=== PATIENT | male | born 1970 | race Caucasian/White ===

== ENCOUNTER 2022-10-22 12:01 | Emergency (ER) | payer SELFPAY ==
[2022-10-22 12:29] LABS: Hematocrit 40.2 % (39.6-49.0); Lymphocytes % 40.7 % (15.3-44.8); MCV 89.9 fL (80-100); MPV 7.3 fL (7.6-11.3); RBC Red Blood Cell Count 4.46 M/uL (4.33-5.43)
[2022-10-22] MEDS ORDERED: KETOROLAC 30 MG/ML INJ ONE (12:31)
[2022-10-22 12:49] LABS: Troponin High Sensitivity 4.2 pg/mL (<58.9)
--- NOTE | 2022-10-22 12:56 | RAD REPORT ---
EXAM DESCRIPTION: RAD - Chest Single View - 10/22/2022 12:46 pm CLINICAL HISTORY: CHEST PAIN COMPARISON: No comparisons FINDINGS: Lines: None. Lungs: No evidence of edema or pneumonia. Pleural: No significant pleural effusions or pneumothorax. Cardiac: The heart size is within normal limits. Mediastinum: Within normal limits. Bones: No acute fractures. Other: None IMPRESSION: No acute cardiopulmonary disease.
--- NOTE | 2022-10-22 13:40 | EDPHYS ---
Physician Documentation [facility] Name: Hardik Sherman Age: 52 yrs Sex: Male : 1970 Arrival Date: 10/22/2022 Time: 12:01 Bed 2 Private MD: ED Physician Festus Amin HPI: 10/22 12:51 This 52 yrs old Male presents to ER via Ambulatory with complaints of Chest bs3 Pain. 12:51 Patient has no significant past medical history and he reports 3 days of chest pain he bs3 denies any associated numbness tingling weakness was in his extremities he denies any exertional symptoms he notes that this morning the pain was completely gone but when he sat up in bed the pain came back he thinks the pain is worse with palpating the back of his chest he notes that he has had the pain for 3 days is not ripping or tearing he does not have associated numbness tingling or weakness of his extremities. Historical: - Allergies: 12:28 No Known Allergies; ld1 - PMHx: 12:15 None; ld1 - PSHx: 12:15 None; ld1 - Immunization history:: Adult Immunizations up to date. - Social history:: Smoking status: Patient denies any tobacco usage or history of. Patient/guardian denies using alcohol. ROS: 12:51 Constitutional: Negative for fever, chills Eyes: Negative for injury, pain, redness, bs3 and discharge, ENT: Negative for injury, pain, and discharge. 12:51 All other systems are negative. Exam: 12:51 Constitutional: This is a well developed, well nourished patient who is awake, alert, bs3 and in no acute distress. Head/Face: Normocephalic, atraumatic. Eyes: Pupils equal round and reactive to light, extra-ocular motions intact. Lids and lashes normal. ENT: mmm, no posterior phyarngeal erythema Neck: Trachea midline, no thyromegaly, no neck stiffness Chest/axilla: Normal chest wall appearance and motion. He has tenderness to palpation of his left posterior chest(upper back). No lesions are appreciated. Cardiovascular: Regular rate and rhythm with a normal S1 and S2. symmetric pulses in upper extremities Respiratory: Lungs have equal breath sounds bilaterally, clear to auscultation, no respiratory distress Abdomen/GI: Soft, non-tender, no rebound or guarding Skin: Warm, dry with normal turgor. Normal color with no rashes, no lesions, and no evidence of cellulitis. MS/ Extremity: Pulses equal, no cyanosis. Neurovascular intact. Full, normal range of motion. Neuro: Awake and alert, GCS 15, oriented to person, place, time, and situation. Cranial nerves II-XII grossly intact. Motor strength 5/5 in all extremities. Sensory grossly intact. Psych: Awake, alert, with orientation to person, place and time. Behavior, mood, and affect are within normal limits. 12:51 Normal sinus rhythm at [address] elevation or depressions QTc 454 Vital Signs: 12:15 BP 142 / 88; Pulse 84; Resp 17; Pulse Ox 96% on R/A; ld1 12:28 BP 133 / 78; Pulse 77; Resp 12; Pulse Ox 96% on R/A; ld1 12:28 Pain 7/10; ld1 12:28 Weight 82.55 kg; Height 5 ft. 7 in. ; ld1 12:28 Temp 97.9(TE); ld1 13:02 BP 120 / 76; Pulse 69; Resp 12; Pulse Ox 96% on R/A; ld1 12:28 Body Mass Index 28.50 (82.55 kg, 170.18 cm) ld1 12:28 Pain Scale: Adult ld1 MDM: 12:10 Patient medically screened. bs3 12:51 HEART Score: History: Slightly Suspicious (0), ECG: Normal (0), Age: > 45 and < 65 bs3 years (1), Risk Factors: No Risk Factors Known (0), Troponin: < or = 1 x Normal Limit (0), Total Score = 1. Data reviewed: vital signs, nurses notes. ED course: Patient with 3 days of chest pain appears musculoskeletal based on the history and physical he does lift things at work. 13:24 ED course: Troponin negative discussed with patient who did not want further workup, bs3 will dc home advised outpatietn cardio f/u within 72 hours. 13:38 Consideration of Admission/Observation Escalation of care including bs3 admission/observation considered. Test considered but Not performed: CT: CTA considered but symptoms not consistent with dissection heart rate is normal his blood pressure are normal he is very well-appearing he has good symmetric pulses and no risk factors for dissection. 10/22 12:17 Order name: CBC with Diff; Complete Time: 13:04 bs3 10/22 12:17 Order name: BMP; Complete Time: 13:04 bs3 10/22 12:17 Order name: Troponin High Sensitivity; Complete Time: 13:04 bs3 10/22 12:17 Order name: XRAY Chest (1 view); Complete Time: 13:04 bs3 Administered Medications: 12:27 Drug: Ketorolac IVP 15 mg Route: IVP; Site: left antecubital; ld1 Disposition Summary: 10/22/22 13:39 Discharge Ordered Location: Home bs3 Problem: new bs3 Symptoms: have improved bs3 Condition: Stable bs3 Diagnosis - Chest pain, unspecified bs3 Followup: bs3 - With: Ray Pedroza MD - When: 1 - 2 days - Reason: Recheck today's complaints Discharge Instructions: - Discharge Summary Sheet bs3 - Nonspecific Chest Pain, Adult bs3 Forms: - Medication Reconciliation Form bs3 - Thank You Letter bs3 - Antibiotic Education bs3 - Prescription Opioid Use bs3 Signatures: Dispatcher [employer] EDBriana Zhao RN RN ld1 Festus Amin MD MD bs3 Corrections: (The following items were deleted from the chart) 12:15 12:15 PMHx: Unable to Obtain; ld1 ld1
--- NOTE | 2022-10-22 13:40 | ER ---
Nurse's Notes [facility] Name: Hardik Sherman Age: 52 yrs Sex: Male : 1970 Arrival Date: 10/22/2022 Time: 12:01 Bed 2 Private MD: Diagnosis: Chest pain, unspecified Presentation: 10/22 12:15 Chief complaint: Patient states: CP for 3 days. Ebola Screen: Patient denies travel to [facility] an Ebola-affected area in the 21 days before illness onset. Initial Sepsis Screen: Does the patient meet any 2 criteria? No. Patient's initial sepsis screen is negative. Does the patient have a suspected source of infection? No. Patient's initial sepsis screen is negative. Risk Assessment: Do you want to hurt yourself or someone else? Patient reports no desire to harm self or others. Onset of symptoms was October 20, 2022. 12:15 Method Of Arrival: Ambulatory ld1 12:15 Acuity: NEHEMIAH 3 ld1 Historical: - Allergies: 12:28 No Known Allergies; ld1 - PMHx: 12:15 None; ld1 - PSHx: 12:15 None; ld1 - Immunization history:: Adult Immunizations up to date. - Social history:: Smoking status: Patient denies any tobacco usage or history of. Patient/guardian denies using alcohol. Screenin:28 [facility] ED Fall Risk Assessment (Adult) History of falling in the last 3 months, ld1 including since admission No falls in past 3 months (0 pts). Abuse screen: Denies threats or abuse. Denies injuries from another. Nutritional screening: No deficits noted. Tuberculosis screening: No symptoms or risk factors identified. Assessment: 12:27 General: Appears in no apparent distress. comfortable, Behavior is calm, cooperative, ld1 appropriate for age. Pain: Complains of pain in chest Pain radiates to left scapular area Pain currently is 7 out of 10 on a pain scale. Quality of pain is described as throbbing, Pain began 2-3 days ago. Neuro: Level of Consciousness is awake, alert, obeys commands, Oriented to person, place, time, situation. Cardiovascular: Capillary refill < 3 seconds Patient's skin is warm and dry. Rhythm is sinus rhythm. Respiratory: Airway is patent Respiratory effort is even, unlabored. GI: Abdomen is flat, non-distended. : No signs and/or symptoms were reported regarding the genitourinary system. EENT: No signs and/or symptoms were reported regarding the EENT system. Derm: No signs and/or symptoms reported regarding the dermatologic system. Musculoskeletal: No signs and/or symptoms reported regarding the musculoskeletal system. 13:02 Reassessment: Patient appears in no apparent distress at this time. No changes from ld1 previously documented assessment. Patient and/or family updated on plan of care and expected duration. Pain level reassessed. Patient is alert, oriented x 3, equal unlabored respirations, skin warm/dry/pink. Vital Signs: 12:15 BP 142 / 88; Pulse 84; Resp 17; Pulse Ox 96% on R/A; ld1 12:28 BP 133 / 78; Pulse 77; Resp 12; Pulse Ox 96% on R/A; ld1 12:28 Pain 7/10; ld1 12:28 Weight 82.55 kg; Height 5 ft. 7 in. ; ld1 12:28 Temp 97.9(TE); ld1 13:02 BP 120 / 76; Pulse 69; Resp 12; Pulse Ox 96% on R/A; ld1 12:28 Body Mass Index 28.50 (82.55 kg, 170.18 cm) ld1 12:28 Pain Scale: Adult ld1 ED Course: 12:03 Patient arrived in ED. rg4 12:10 Festus Amin MD is Attending Physician. bs3 12:15 Arm band placed on Patient placed in an exam room, on a stretcher. ld1 12:16 Triage completed. ld1 12:23 Troponin High Sensitivity Sent. jl7 12:23 BMP Sent. jl7 12:23 CBC with Diff Sent. jl7 12:27 Briana Wade, LEEANNE is Primary Nurse. ld1 12:28 Patient has correct armband on for positive identification. Placed in gown. Bed in low ld1 position. Call light in reach. Side rails up X2. telemarketing supervisor on. Pulse ox on. NIBP on. Door closed. Noise minimized. Warm blanket given. 12:28 No provider procedures requiring assistance completed. Inserted saline lock: 20 gauge ld1 in left antecubital area, using aseptic technique. Blood collected. Patient maintains SpO2 saturation greater than 95% on room air. 12:48 XRAY Chest (1 view) In Process Unspecified. EDMS 13:39 Ray Pedroza MD is Referral Physician. bs3 14:15 IV discontinued, intact, bleeding controlled, No redness/swelling at site. Pressure kc6 dressing applied. Administered Medications: 12:27 Drug: Ketorolac IVP 15 mg Route: IVP; Site: left antecubital; ld1 Medication: 12:28 VIS not applicable for this client. ld1 Outcome: 13:39 Discharge ordered by . bs3 14:07 Patient left the ED. ld1 14:15 Discharged to home ambulatory. kc6 14:15 Condition: stable 14:15 Discharge instructions given to patient, Instructed on discharge instructions, follow up and referral plans. Demonstrated understanding of instructions, follow-up care. 14:15 Patient left the ED. kc6 Signatures: Dispatcher [employer] EDMS Benita Pemberton rg4 Paul Cavanaugh RN RN jl7 Briana Wade RN RN ld1 Michelle Camarena RN RN kc6 Festus Amin MD MD bs3 Corrections: (The following items were deleted from the chart) 12:15 12:15 PMHx: Unable to Obtain; ld1 ld1
[2022-10-22 14:13] VITALS: O2SAT 96
[2022-10-22 14:15] VITALS: TEMP 97.9
[2022-10-22 14:29] VITALS: BP 120/76
--- NOTE | 2022-10-24 10:18 | EKG ---
Test Date: 2022-10-22 Test Time: 12:17:00 Inventory Auditor: Cristofer ST MEASUREMENT RESULTS: Intervals: Rate: 77 AK: 136 QRSD: 84 QT: 402 QTc: 454 [place]: P: 65 AK: 136 QRS: 60 T: 54 INTERPRETIVE STATEMENTS: Normal sinus rhythm Normal ECG No previous ECG available for comparison Electronically Signed On 10-24-22 10:14:07 CDT by Dangelo Payne
== END 2022-10-22 14:15 | disposition home or self-care (01) ==
LOC: ER 12:01
DX: R07.9 Chest pain, unspecified (principal)
CPT/HCPCS: 36415; 71045; 80048; 84484; 85025; 93005; 96374; 99285

== ENCOUNTER 2024-06-02 07:48 | Observation (INO) | payer OTHER, SELFPAY ==
--- OUTSIDE RECORDS SUMMARY | 2024-06-02 07:51 | XMS REPORT | Continuity of Care Document ---
Author Name Unknown Address [address] [place] [address] [facility] Address [address] [place] [address] Care Team Providers Care [employer] Tower Controller Name Role Phone HARSHA ESTRADA Attending Clinician Unavailable KARIN PRO Attending Clinician Unavailable [id number] Attending Clinician Unavailable LESLIE BAKER Attending Clinician Unavailable LATASHA Attending Clinician Unavailable BIANCA GARCIA Attending Clinician Unavailab le [id number] Attending Clinician Unavailable JUDAH ROONEY Attending Clinician Unavailable NICOLE CARPIO Attending Clinician Unavailable LAB90 Attending Clinician Unavailable Payers Payer Name Policy Type Policy Number Effective Date Expirati on Date Source [employer] MP [employer] 5 O OPERATING ROOM COORDINATOR 94 ON 9 [id number] 2023 00:00:00 Social History Social Habit Start Date Stop Date Quantity Comments Source Sexual orientation Isabella Monet - External History of Social function 2023-12-05 00:00:00 2023-12-05 00:00:00 Nicole Monet - External Tobacco use and exposure 2023-04-18 00:00:00 2023-04-18 00:00:00 Smokeless tobacco non-user Nicole Monet - External Sex [birth year] at 1970 00:00:00 1970 00:00:00 Nicole Monet - External Smoking Status Start Date Stop Date Source Never smoked tobacco Nicole Monet - External Medications Ordered Medication Name Filled Medication Name Start Date Stop Date Current Medication? Ordering Clinician Indication Dosage Frequency Signature (SIG) Comments Components Source Tizanidine HCl 2 MG oral Tablet 11-16 00:00: 00 Yes [id number] 2mg Take 1 tablet (2 mg total) by mouth at bedtime as needed for muscle spasms. Nicole jaramillo Doxycycline Hyclate 100 MG oral Tablet 11-15 00:00: 00 Yes [id number] 100mg Q.5D Take 1 tablet (100 mg total) by mouth 2 times daily. Nicole jaramillo Tizanidine HCl 2 MG oral Tablet 10-18 00:00: 00 Yes [id number] 2mg Take 1 tablet (2 mg total) by mouth at bedtime as needed for muscle spasms. Nicole jaramillo Meloxicam 15 MG oral Tablet 10-16 00:00: 00 Yes 15mg QD Take 1 tablet (15 mg total) by mouth daily. Nicole jaramillo Immunizations Ordered Immunization Name Filled Immunization Name Date Status Comments Source Covid-19 Vaccine Moderna (Spikevax), Mrna-lnp, Bebo Protein, Pf Unknown Completed Nicole Monet - External Covid-19 Vaccine Moderna (Spikevax), Mrna-lnp, Bebo Protein, Pf Unknown Completed Nicole Monet - External Covid-19 Vaccine Moderna (Spikevax), Mrna-lnp, Bebo Protein, Pf Unknown Completed Nicole Monet - External Vital Signs Vital Name Observation Time Observation Value Comments S [place] Systolic blood pressure 2023-12-05 18:00:00 124 mm[Hg] Nicole Valentine ld - External Diastolic blood pressure 2023-12-05 18:00:00 62 mm[Hg] Nicole bryson - External Heart rate 2023-12-05 18:00:00 78 /min Nery Monet - External Body temperature 2023-12-05 18:00:00 36.72 Mayra Nicole Monet - External Respiratory rate 2023-12-05 18:00:00 16 /min Nicole Monet - External Body height 2023-12-05 18:00:00 177.8 cm Stephanie Monet - External Body weight 2023-12-05 18:00:00 80.65 kg Stephanie ey Seybold - External BMI 2023-12-05 18:00:00 25.51 kg/m2 Stephanie ey Seybold - External Systolic blood pressure 2023-10-19 19:34:00 112 mm[Hg] Nicole Seybo ld - External Diastolic blood pressure 2023-10-19 19:34:00 68 mm[Hg] Nicole Seybo ld - External Heart rate 2023-10-19 19:34:00 76 /min Kelse y Seybold - External Body temperature 2023-10-19 19:34:00 36.67 Mayra Nicole Seybold - External Respiratory rate 2023-10-19 19:34:00 17 /min Nicole Seybold - External Body height 2023-10-19 19:34:00 177.8 cm Stephanie ey Seybold - External Body weight 2023-10-19 19:34:00 79.107 kg Stephanie ey Seybold - External BMI 2023-10-19 19:34:00 25.02 kg/m2 Stephanie ey Seybold - External Oxygen saturation in Arterial blood by Pulse oximetry 2023-10-19 19:34:00 97 /min Nicole Seybo ld - External Systolic blood pressure 2023-04-18 20:31:00 126 mm[Hg] Nicole Seybo ld - External Diastolic blood pressure 2023-04-18 20:31:00 68 mm[Hg] Nicole Seybo ld - External Heart rate 2023-04-18 20:31:00 68 /min Kelse y Seybold - External Body temperature 2023-04-18 20:31:00 36.61 Mayra Nicole Seybold - External Respiratory rate 2023-04-18 20:31:00 18 /min Nicole Seybold - External Body height 2023-04-18 20:31:00 180.3 cm Stephanie ey Seybold - External Body weight 2023-04-18 20:31:00 79.946 kg Stephanie ey Seybold - External BMI 2023-04-18 20:31:00 24.58 kg/m2 Stephanie ey Seybold - External Oxygen saturation in Arterial blood by Pulse oximetry 2023-04-18 20:31:00 97 /min Nicole Valentine ld - External Encounters Start Date/Time End Date/Time Encounter Type Admission Type Attending [facility] Care Department Encounter ID Source 2024-02-13 00:00:00 2024-02-13 00:00:00 Outpatient HARSHA ESTRADA NICOLE ROD [id number] [facility] 2024-02-13 00:00:00 2024-02-13 00:00:00 Outpatient SEAN HARSHA ROD [id number] [facility] 2024-01-02 00:00:00 2024-01-02 00:00:00 Outpatient SEAN HARSHA ROD [id number] [facility] 2023-12-29 00:00:00 2023-12-29 00:00:00 Outpatient SEAN, HARSHA NICOLE ROD [id number] [facility] 2023-12-19 16:00:00 2023-12-19 16:00:00 Outpatient NICOLE ROD [id number] [facility] 2023-12-19 00:00:00 2023-12-19 00:00:00 Outpatient [id number] [facility] 2023-12-14 00:00:00 2023-12-14 00:00:00 Outpatient INOCENCIAKARIN NICOLE ROD [id number] [facility] 2023-12-12 00:00:00 2023-12-12 00:00:00 Outpatient SEAN, HARSHA ROD [id number] [facility] 2023-12-05 13:50:00 2023-12-05 13:50:00 Outpatient LAB45 NICOLE ROD [id number] [facility] 2023-12-05 11:00:00 2023-12-05 11:00:00 Outpatient SEAN HARSHA NICOLE ROD [id number] [facility] 2023-11-16 00:00:00 2023-11-16 00:00:00 Outpatient LESLIE BAKER [id number] [facility] 2023-11-16 00:00:00 2023-11-16 00:00:00 Outpatient LESLIE [facility]AKER [facility] [id number] [facility] 2023-11-09 00:00:00 2023-11-09 00:00:00 Out[facility] LATASHA [facility] [id number] [facility] 2023-11-06 00:00:00 2023-11-06 00:00:00 Outpatient BIANCA GARCIA [facility] [id number] [facility] 2023-11-03 16:15:00 2023-11-03 16:15:00 [facility] [id number] [facility] 2023-10-20 00:00:00 2023-10-20 00:00:00 Outpatient LESLIE BAKER NICOLE NICOLE [id number] [facility] 2023-10-19 14:30:00 2023-10-19 14:30:00 Outpatient LESLIE BAKER [facility] [id number] [facility] 2023-09-21 16:15:00 2023-09-21 16:15:00 Out[facility] [id number] [facility] 2023-09-21 00:00:00 2023-09-21 00:00:00 Outpatient BIANCA GARCIA [facility] [id number] [facility] 2023-08-21 16:15:00 2023-08-21 16:15:00 Out[facility] [id number] [facility] 2023-07-27 08:00:00 2023-07-27 08:00:00 Out[facility] [id number] [facility] 2023-07-07 00:00:00 2023-07-07 00:00:00 Outpatient BIANCA GARCIA [facility]LE [facility] [id number] [facility] 2023-06-30 13:15:00 2023-06-30 13:15:00 Outpatient TREVignesh7 NICOLE ROD [id number] [facility] 2023-06-30 11:00:00 2023-06-30 11:00:00 Outpatient [facility]LE R[facility] [id number] [facility] 2023-06-30 10:00:00 2023-06-30 10:00:00 Outpatient [facility]LE ROD [id number] [facility] 2023-05-26 13:15:00 2023-05-26 13:15:00 Outpatient TRED47 NICOLE ROD [id number] [facility] 2023-05-26 11:00:00 2023-05-26 11:00:00 Out[facility] [id number] [facility] 2023-05-24 15:30:00 2023-05-24 15:30:00 Outpatient STARARLYNA NICOLE ROD [id number] [facility] 2023-05-19 00:00:00 2023-05-19 00:00:00 Outpatient BIANCA GARCIA [id number] [facility] 2023-05-09 14:10:00 2023-05-09 14:10:00 Outpatient JUDAH ROONEY [id number] [facility] 2023-05-04 11:30:00 2023-05-04 11:30:00 Outpatient NICOLE CARPIO [facility] [id number] [facility]23-05-02 00:00:00 2023-05-02 00:00:00 Out[facility] [id number] [facility] 2023-05-02 00:00:00 2023-05-02 00:00:00 Out[facility] [id number] [facility] 2023-05-01 00:00:00 2023-05-01 00:00:00 Outpatient BIANCA GARCIA [id number] [facility] 2023-04-26 08:40:00 2023-04-26 08:40:00 Outpatient LABIsmael ROD [id number] [facility] 2023-04-21 09:30:00 2023-04-21 09:30:00 Outpatient BIANCA GARCIA [id number] [facility] 2023-04-20 00:00:00 2023-04-20 00:00:00 Outpatient BIANCA GARCIA [id number] [facility] 2023-04-20 00:00:00 2023-04-20 00:00:00 Outpatient STARSILVERIOBIANCAMaynor FRANCESEY [id number] Nicole Monet 2023-04-19 08:05:00 2023-04-19 08:05:00 Outpatient LAB90 NICOLE ROD [id number] Nicole Monet 2023-04-18 14:30:00 2023-04-18 14:30:00 Outpatient STARARLYNA NICOLE NICOLE [id number] Nicole Mon[facility] History and Physical Notes Date/Time Note Provider Source 2023-12-05 13:12:01 GASTROENTEROLOGY Video visit Consultation Referring Physician: Bianca Garcia FNP* Reason for referral: Chronic hepatitis C HPI: Patient is a very pleasant 53 year old male complaints of chronic hepatitis C diagnosed about few years back. He never had treatment in the past. also had hepatitis C who received treatment. He denies any use of alcohol. No history of any problems with the liver in the past. 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 ? ROS: Constitutional: no wt loss, no fever, no chills, no fatigue Gastrointestinal: See HPI ? Past Medical History: Diagnosis Date Umbilical hernia Past Surgical History: Procedure Laterality Date REPAIR ING HERNIA, SLIDING Social History Tobacco Use Smoking status: Never Smokeless tobacco: Never No Known Allergies Current Outpatient Medications on File Prior to Visit Medication Sig Dispense Refill Doxycycline Hyclate 100 MG oral Tablet Take 1 tablet (100 mg total) by mouth 2 times daily. (Patient not taking: Reported on 12/05/2023.) 14 tablet 0 Meloxicam 15 MG oral Tablet Take 1 tablet (15 mg total) by mouth daily. (Patient not taking: Reported on 12/05/2023.) Tizanidine HCl 2 MG oral Tablet Take 1 tablet (2 mg total) by mouth at bedtime as needed for muscle spasms. (Patient not taking: Reported on 12/05/2023.) 90 tablet 0 No current facility-administered medications on file prior to visit. BP 124/62 | Pulse 78 | Temp 98.1 ?F (36.7 ?C) (Oral) | Resp 16 | Ht 5' 10" (1.778 m) | Wt 177 lb 12.8 oz (80.6 kg) | BMI 25.51 kg/m? Reviewed labs and imaging ? Assessment and plan: 53 year old male with 1) chronic hepatitis C -the viral load is 352,000 Iu/ ml, liver enzymes shows elevation of AST and ALT but liver synthetic function is normal. Ultrasound shows nodular liver. However CBC is normal and liver enzymes do not show pattern suggestive of cirrhosis. Recommendations -Repeat LFT, hepatitis C genotype -Hepatitis B and HIV test are negative -FibroSure -Depending on the lab results will prescribe treatment for hepatitis C -Although the ultrasound shows nodular liver labs do not suggest presence of cirrhosis. There is no risk factor for cirrhosis other than hepatitis C. -Plan is to see the results of FibroSure, repeat labs and Doppler after finishing treatment of hepatitis C. 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 Harsha Estrada MD, MS Gastroenterology [facility]
[2024-06-02] MEDS ORDERED: ONDANSETRON 4 MG/2 ML VIAL ONE (07:56)
[2024-06-02] MEDS ORDERED: NA CHLORIDE 0.9% 1,000 ML ONE (07:57)
[2024-06-02] MEDS ORDERED: FAMOTIDINE 20 MG/2 ML VIAL IV ONE (07:57)
[2024-06-02] MEDS ORDERED: MORPHINE 4 MG/ML SYR ONE ×2 (07:57→08:22)
[2024-06-02 08:06] LABS: Absolute Basophils 0.1 K/uL (0-0.5); Absolute Eosinophils 0.1 K/uL (0-0.5); Absolute Lymphocytes (CBC) 3.4 K/uL (0.7-4.9); Absolute Monocytes 0.5 K/uL (0.1-1.3); Absolute Neutrophil 11.4 K/uL (1.8-8.0); Basophils % 0.9 % (0-1.3); Eosinophils % 0.5 % (0-4.4); Hematocrit 44.8 % (39.6-49.0); Hemoglobin 15.3 g/dL (13.6-17.9); Lymphocytes % 21.6 % (15.3-44.8); MCH 30.5 pg (27.0-35.0); MCHC 34.1 g/dL (32.0-36.0); MCV 89.4 fL (80-100); MPV 7.3 fL (7.6-11.3); Monocytes % 3.4 % (3.3-12.3); Neutrophils % 73.6 % (41.7-73.7); Platelets 255 thou/uL (152-406); RBC Red Blood Cell Count 5.01 M/uL (4.33-5.43); Red Cell Distribution Width 13.2 % (12.1-15.2)
[2024-06-02 08:22] LABS: Albumin 4.1 g/dL (3.4-5.0); Anion Gap 9.3 mEq/L (5.0-15.0); Bilirubin Total 0.5 mg/dL (0.2-1.0); Globulin 4.2 g/dL (2.3-3.5); Potassium 3.3 mEq/L (3.5-5.1); Protein, Total 8.3 g/dL (6.4-8.2); Troponin High Sensitivity 3.9 pg/mL (<58.9)
[2024-06-02] MEDS ORDERED: PROMETHAZINE INJ 25 MG/ML AMP ONE (08:59)
--- NOTE | 2024-06-02 09:18 | RAD REPORT ---
EXAMINATION: US Abdomen Exam Limited CLINICAL HISTORY: [facility] MAIN Y Abd pain;Nausea / vomiting Bed Name: 5 COMPARISON: None. TECHNIQUE: Limited upper abdominal grayscale and color flow sonographic images. FINDINGS: Gallbladder: Normal. Bile ducts: No intrahepatic or extrahepatic biliary dilatation. Common bile duct measures 4 mm. Liver: Visualized portions of the liver demonstrate normal echogenicity with no suspicious findings. Fluid: No ascites. IMPRESSION: No abnormalities on right upper quadrant ultrasound.
--- NOTE | 2024-06-02 09:28 | RAD REPORT ---
EXAMINATION: CT Abdomen Pelvis W Contrast CLINICAL INDICATION: Male, 53 years old. ABD PAIN TECHNIQUE: CT abdomen and pelvis was performed, after the administration of IV contrast, as per [facility]. Axial, sagittal and coronal reconstructions were obtained. One or more of the following dose reduction techniques were used: Automated exposure control, adjustment of the mA and k V according to patient size, and iterative reconstruction. Unless otherwise specified, incidental findings do not require dedicated imaging follow-up. COMPARISON: Upper abdomen ultrasound of the same day FINDINGS: LOWER CHEST: The visualized lung bases are clear. LIVER: Normal in size. Nodular capsular contour the liver particularly inferiorly. No focal lesion. BILIARY SYSTEM: No suspicious abnormalities, although gallbladder is suboptimally distended limiting evaluation. SPLEEN: Normal size. No focal lesion. PANCREAS: No mass, ductal dilation, or mkiayla-pancreatic fluid. ADRENALS: Normal; no mass. KIDNEYS: Normal size and contour. No hydronephrosis. URINARY BLADDER: Unremarkable. GASTROINTESTINAL TRACT: Varicosities along the fundus of the stomach, could represent portosystemic s hunting. Segmental fluid opacification of mildly distended small bowel throughout the abdomen, more so along the jejunum, without significant distention throughout most of the ileum. Gradual transition to nondistended terminal ileum. No evidence of free air, significant intra-abdominal free fluid, or abscess. APPENDIX: Appendix not visualized, but no inflammatory changes in region of appendix. LYMPH NODES: No lymphadenopathy. MUSCULOSKELETAL: No acute or suspicious osseous abnormality. Transitional anatomy at L5. ADDITIONAL FINDINGS: Postsurgical sequelae of left inguinal hernia repair. IMPRESSION: Segmental fluid opacification throughout the small bowel, with mild distention most notably along the jejunum. No focal transition. Findings suggest mild ileus. Nodular contour of the liver particularly inferiorly. Varicosities along the fundus of the stomach. F indings may relate to ongoing liver fibrosis or cirrhosis with portal hypertension. Other incidental findings as above.
--- NOTE | 2024-06-02 09:34 | ER ---
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 Coronavirus screen: Client denies travel out of the [place] in the last 14 days. nausea, vomiting. Client presents with at least one sign or symptom that may indicate coronavirus-19. Standard/surgical mask placed on the client. Ebola Screen: Patient denies travel to an Ebola-affected area in the 21 days before illness onset. Initial Sepsis Screen: Does the patient meet any 2 criteria? No. Patient's initial sepsis screen is negative. Does the patient have a suspected source of infection? No. Patient's initial sepsis screen is negative. Risk Assessment: Do you want to hurt yourself or someone else? Patient reports no desire to harm self or others. Onset of symptoms was June 02, 2024. 07:51 Method Of Arrival: Ambulatory ll1 07:51 Acuity: NEHEMIAH 3 ll1 Triage Assessment: 07:56 General: Appears distressed, uncomfortable, ill, Behavior is cooperative, appropriate ll1 for age, agitated, restless. General: Reports feeling ill for fatigue for. Pain: Complains of pain in abdomen Pain currently is 10 out of 10 on a pain scale. Quality of pain is described as aching, crampy, sharp, Pain began 4 hours ago. GI: Reports upper abdominal pain, nausea, vomiting. Historical: - Allergies: 08:01 Aspirin; ll1 - Home Meds: 08:01 Methadone Oral [Active]; ll1 - PSHx: 08:01 back surgery; ll1 - Immunization history:: Adult Immunizations up to date. - Infectious Disease History:: Denies. - Family history:: not pertinent. - Social history:: Smoking status: unknown. - Hospitalizations: : No recent hospitalization is reported. Screenin:04 [facility] ED Fall Risk Assessment (Adult) History of falling in the last 3 months, ll1 including since admission No falls in past 3 months (0 pts) Confusion or Disorientation No (0 pts) Intoxicated or Sedated No (0 pts) Impaired Gait No (0 pts) Mobility Assist Device Used No (0 pt) Altered Elimination No (0 pt) Score/Fall Risk Level 0 - 2 = Low Risk Maintained a safe environment, Hourly rounding (assess needs \\T\\ fall precautionary measures) done. Abuse screen: Denies threats or abuse. Nutritional screening: No deficits noted. Tuberculosis screening: No symptoms or risk factors identified. Assessment: 07:55 Reassessment: Hit himself in the forehead after completing IV and blood work. Still ll1 very restless. 08:10 Reassessment: Explained NPO. Got up off stretcher, turned on cold water, and drank it ll1 out of faucet. Reinforced that he is to have nothing to eat or drink until results return. 08:12 Reassessment: No changes from previously documented assessment. Screaming "Call my ll1 and have her bring my medicine!" EKG done. Explained that I could contact his for him if needed. "I just need my cell phone!" Hit himself forcefully in the forehead with closed fist. 08:14 Reassessment: Patient states symptoms have not improved. Screaming loudly into cell 1 phone, "Bring my methadone now!!!" . 08:23 Reassessment: Medicated as prescribed. Hit himself in the forehead with his fist ll1 forcefully again. 08:36 Reassessment: to CT via wheelchair. ll1 08:38 Reassessment: arrived and brought his methadone to take. Dr. Summers informed. ll1 08:48 Reassessment: Patient and/or family updated on plan of care and expected duration. Pain ll1 level reassessed. patient took his home Methadone [address] Summers informed. 09:05 Reassessment: Patient and/or family updated on plan of care and expected duration. Pain ll1 level reassessed. medicated for vomiting. 09:45 Reassessment: No changes from previously documented assessment. Patient and/or family ll1 updated on plan of care and expected duration. Pain level reassessed. Patient states symptoms have improved. seems to be resting. No longer hitting himself or screaming at the staff. . 10:40 GI: Bowel sounds present X 4 quads. Abd is soft Abdomen is tender to palpation X 4 ll1 quads. Vital Signs: 07:51 Pain 10/10; ll1 07:54 BP 136 / 94; Pulse 74; Resp 24 S; Temp 97.7(O); Pulse Ox 99% on R/A; aa5 08:30 BP 125 / 89; Pulse 75; Resp 18; Pulse Ox 100% on R/A; ll1 09:18 BP 138 / 92; Pulse 74; Resp 17; ll1 09:56 BP 133 / 81; Pulse 70; Resp 16; ll1 10:39 BP 130 / 79; Pulse 78; Resp 17; Pulse Ox 100% on R/A; ll1 11:23 BP 130 / 78; Pulse 73; Resp 17; Pulse Ox 100% ; ll1 07:51 Pain Scale: Adult ll1 ED Course: 07:49 Patient arrived in ED. mr 07:50 Andrews Summers MD is Attending Physician. rn 07:50 Arm band placed on Patient placed in an exam room, on a stretcher. ll1 07:55 Provided Education on: ER procedures and process, approximate wait time for results. ll1 Screamed out "I don't care if it takes five days!" . 07:55 Initial lab(s) drawn, by me, sent to lab. Inserted saline lock: 20 gauge in right ll1 antecubital area, using aseptic technique. Blood collected. Flushed with 10 mL NS. 08:02 Triage completed. ll1 08:05 Patient has correct armband on for positive identification. Bed in low position. Client ll1 placed on continuous cardiac and pulse oximetry monitoring. NIBP monitoring applied. 08:14 US Abdomen Limited In Process Unspecified. EDMS 08:20 Tyler Pena, RN is Primary Nurse. ll1 08:24 Door closed. Lights dimmed. Warm blanket given. Verbal reassurance given. ll1 08:45 CT Abd/Pelvis - IV Contrast Only In Process Unspecified. EDMS 09:33 Jeff Jason MD is Hospitalizing Provider. rn 10:40 No provider procedures requiring assistance completed. Patient admitted, IV remains in ll1 place. Administered Medications: 08:01 Drug: Famotidine IVP 20 mg IVP once; dilute with 10 mL 0.9% NaCl; give over 2 minutes aa5 Route: IVP; Site: right antecubital; 09:17 Follow up: Response: No adverse reaction ll1 08:01 Drug: Ondansetron IVP 4 mg IVP once; over 2 minutes Route: IVP; Site: right antecubital;aa5 09:17 Follow up: Response: No adverse reaction; Nausea is decreased ll1 08:01 Drug: NS 0.9% IV 1000 ml IV at 1 bolus Per protocol; to be given as a bolus over 60 aa5 minutes Route: IV; Rate: 1 bolus; Site: right antecubital; 09:58 Follow up: Response: No adverse reaction; IV Status: Completed infusion; IV Intake: ll1 1000ml 08:02 Drug: morphine IVP or IV 4 mg IVP once over 4 mins Route: IVP; Infused Over: 4 mins; aa5 Site: right antecubital; 09:17 Follow up: Response: No adverse reaction; Pain is unchanged, physician notified; RASS: ll1 Agitated (+2) 08:23 Drug: morphine IVP or IV 4 mg IVP once over 4 mins {Note: pain 10/10 RASS 2+.} Route: ll1 IVP; Infused Over: 4 mins; Site: right antecubital; 09:18 Follow up: Response: No adverse reaction; Pain is decreased; RASS: Restless (+1) ll1 09:05 Drug: Promethazine IVP 12.5 mg IVP once Route: IVP; Site: right antecubital; iw 09:58 Follow up: Response: No adverse reaction; Nausea is decreased; RASS: Drowsy (-1) ll1 Medication: 08:05 VIS not applicable for this client. ll1 Intake: 09:58 IV: 1000ml; Total: 1000ml. ll1 Outcome: 09:34 Decision to Hospitalize by Provider. rn 10:40 Admitted to Med/surg accompanied by tech, via stretcher, room 210, with chart, Report ll1 called to faxed to 2nd floorYenny. 10:40 Condition: stable 10:40 Instructed on the need for admit, 11:23 Patient left the ED. 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 ll1 ll1 08:30 08:12 Reassessment: No changes from previously documented assessment. Screaming "Call ll1 my and have her bring my medicine!" EKG done. Explained that I could contact his for him if needed. "I just need my cell phone!" ll1
--- NOTE | 2024-06-02 09:35 | EDPHYS ---
Physician Documentation [facility] Name: Hardik Sherman Age: 53 yrs Sex: Male : 1970 Arrival Date: 06/02/2024 Time: 07:48 Bed 5 Private MD: ED Physician Andrews Summers HPI: 06/02 07:54 This 53 yrs old Male presents to ER via Unassigned with complaints of Abdominal Pain, rn Vomiting. 07:54 The patient presents to the emergency department with nausea, vomiting, abdominal pain. rn Onset: The symptoms/episode began/occurred 3 hour(s) ago. Possible causes: unknown. The symptoms are aggravated by nothing. The symptoms are alleviated by nothing. Severity of symptoms: At their worst the symptoms were moderate in the emergency department the symptoms are unchanged. The patient has not experienced similar symptoms in the past. Patient reports mid and upper abdominal pain that began a few hours ago. Associated with nausea and vomiting. No diarrhea. No blood in emesis or stool. Denies similar episodes in the past. Takes methadone but did not take today due to vomiting. No chest pain or shortness of breath.. Historical: - Allergies: 08:01 Aspirin; ll1 - Home Meds: 08:01 Methadone Oral [Active]; ll1 - PSHx: 08:01 back surgery; ll1 - Immunization history:: Adult Immunizations up to date. - Infectious Disease History:: Denies. - Family history:: not pertinent. - Social history:: Smoking status: unknown. - Hospitalizations: : No recent hospitalization is reported. 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 Continues to hit himself in the head and abdomen during episodes of pain Head/Face: Normocephalic, atraumatic. ENT: Dry mucous membranes, no stridor Cardiovascular: Regular rate and rhythm . No pulse deficits. Respiratory: Mild tachypnea, appears secondary to pain Abdomen/GI: Soft, mid periumbilical tenderness as well as epigastric tenderness. Negative [place] MS/ Extremity: Pulses equal, no cyanosis. Neuro: Awake and alert, GCS 15 09:16 ECG was reviewed by the Attending Physician. rn Vital Signs: 07:51 Pain 10/10; ll1 07:54 BP 136 / 94; Pulse 74; Resp 24 S; Temp 97.7(O); Pulse Ox 99% on R/A; aa5 08:30 BP 125 / 89; Pulse 75; Resp 18; Pulse Ox 100% on R/A; ll1 09:18 BP 138 / 92; Pulse 74; Resp 17; ll1 09:56 BP 133 / 81; Pulse 70; Resp 16; ll1 10:39 BP 130 / 79; Pulse 78; Resp 17; Pulse Ox 100% on R/A; ll1 11:23 BP 130 / 78; Pulse 73; Resp 17; Pulse Ox 100% ; ll1 07:51 Pain Scale: Adult ll1 MDM: 07:50 Medical Screening Exam initiated rn 09:32 Differential diagnosis: Nonspecific abd pain, gastritis, cholecystitis, pancreatitis, rn appendicitis, diverticulitis, viral gastroenteritis, gastroenteritis. Data reviewed: vital signs, nurses notes, lab test result(s), radiologic studies, CT scan, ultrasound, and as a result, I will admit patient. Consideration of Admission/Observation Patient was admitted/placed on observation. Escalation of care including admission/observation considered. Counseling: I had a detailed discussion with the patient and/or guardian regarding the historical points, exam findings, and any diagnostic results supporting the discharge/admit diagnosis, lab results, radiology results, the need for further work-up and treatment in the hospital. Response to treatment: the patient's symptoms have mildly improved after treatment, and as a result, I will admit patient. ED course: Patient with possible infectious ileitis and resultant ileus. Will observe in hospital due to intractable pain. Ileus could also be secondary to chronic methadone use. Still vomiting here despite Zofran, eventually improved with Phenergan.. 06/02 07:54 Order name: CBC with Diff; Complete Time: 08:20 rn 06/02 07:54 Order name: CMP; Complete Time: 08:27 rn 06/02 07:54 Order name: Lipase; Complete Time: 08:27 rn 06/02 07:56 Order name: Troponin High Sensitivity; Complete Time: 08:27 rn 06/02 10:07 Order name: Acute Hepatitis Panel EDMS 06/02 10:07 Order name: Acute Hepatitis Panel EDMS 06/02 10:07 Order name: CBC with Automated Diff EDMS 06/02 10:07 Order name: CBC with Automated Diff EDMS 06/02 10:07 Order name: Comprehensive Metabolic Panel EDMS 06/02 10:07 Order name: Comprehensive Metabolic Panel EDMS 06/02 07:54 Order name: CT Abd/Pelvis - IV Contrast Only; Complete Time: 09:29 rn 06/02 07:54 Order name: US Abdomen Limited; Complete Time: 09:29 rn 06/02 07:56 Order name: EKG; Complete Time: 07:56 rn 06/02 07:54 Order name: IV Saline Lock; Complete Time: 08: rn 06/02 07:54 Order name: Labs collected and sent; Complete Time: 08: rn 06/02 07:56 Order name: EKG - Nurse/Tech; Complete Time: 08:13 rn EC:16 Rate is 81 beats/min. Rhythm is regular. QRS [place] is Normal. [place] interval is normal. QRS rn interval is normal. QT interval is normal. No Q waves. T waves are Normal. No ST changes noted. Clinical impression: Normal ECG. Reviewed by me. Administered Medications: 08:01 Drug: Famotidine IVP 20 mg IVP once; dilute with 10 mL 0.9% NaCl; give over 2 minutes aa5 Route: IVP; Site: right antecubital; 09:17 Follow up: Response: No adverse reaction ll1 08:01 Drug: Ondansetron IVP 4 mg IVP once; over 2 minutes Route: IVP; Site: right antecubital;aa5 09:17 Follow up: Response: No adverse reaction; Nausea is decreased ll1 08:01 Drug: NS 0.9% IV 1000 ml IV at 1 bolus Per protocol; to be given as a bolus over 60 aa5 minutes Route: IV; Rate: 1 bolus; Site: right antecubital; 09:58 Follow up: Response: No adverse reaction; IV Status: Completed infusion; IV Intake: ll1 1000ml 08:02 Drug: morphine IVP or IV 4 mg IVP once over 4 mins Route: IVP; Infused Over: 4 mins; aa5 Site: right antecubital; 09:17 Follow up: Response: No adverse reaction; Pain is unchanged, physician notified; RASS: ll1 Agitated (+2) 08:23 Drug: morphine IVP or IV 4 mg IVP once over 4 mins {Note: pain 10/10 RASS 2+.} Route: ll1 IVP; Infused Over: 4 mins; Site: right antecubital; 09:18 Follow up: Response: No adverse reaction; Pain is decreased; RASS: Restless (+1) ll1 09:05 Drug: Promethazine IVP 12.5 mg IVP once Route: IVP; Site: right antecubital; iw 09:58 Follow up: Response: No adverse reaction; Nausea is decreased; RASS: Drowsy (-1) ll1 Disposition Summary: 06/02/24 09:34 Hospitalization Ordered Notes: Hospitalization Status: Observation rn Provider: Jeff Jason [facility] Condition: Stable rn Problem: new rn Symptoms: have improved rn Bed/Room Type: Standard rn Room Assignment: 210(06/02/24 10:28) iw Diagnosis - Ileus, unspecified rn - Vomiting, unspecified rn Forms: - Medication Reconciliation Form rn - SBAR form rn - Leadership Thank You Letter rn Signatures: Dispatcher [employer] EDNayely Givens RN RN iw Andrews Summers MD MD rn Calderon, Audri, RN RN aa5 Tyler Pena RN RN ll1 Corrections: (The following items were deleted from the chart) 07:55 07:55 Abdomen Pelvis W Con+CT.RAD.BRZ ordered. EDMS EDMS 07:55 07:55 Abdomen Limited+US.RAD.BRZ ordered. EDMS EDMS 10:28 09:34 rn nivia
--- NOTE | 2024-06-02 10:02 | P.HP ---
Certification for Inpatient Patient admitted to: Observation With expected LOS: <2 Midnights Patient will require the following post-hospital care: None Practitioner: I am a practitioner with admitting privileges, knowledge of patient current condition, hospital course, and medical plan of care. Services: Services provided to patient in accordance with Admission requirements found in Title 42 Section 412.3 of the Code of Federal Regulations Patient History Date of Service: 06/02/24 Reason for admission: Intractable nausea and vomiting History of Present Illness: Patient is a 53-year-old gentleman came to the hospital with persistent nausea and vomiting. Patient states he has no history of constipation or no significant abdominal issues. He has had no nausea and vomiting. He does take methadone for chronic pain, as well as a history of substance abuse. In the ER patient was worked up and patient was found to have a questionable ileus. Ho wever, his abdomen is soft and nontender. He is having some nausea but no vomiting at this time. Emergency room physician did not feel comfortable with him going home without tolerating diet so he will be admitted for observation. - Past Medical/Surgical History Past Medical History: Patient denies medical history Past Surgical History: Patient denies surgical history - Family History Father Family History: Reviewed- Non-Contributory - Social History Smoking Status: Former smoker Alcohol use: Yes CD- Drugs: Yes Review of Systems 10-point ROS is otherwise unremarkable Physical Examination - Vital Signs Temperature: 98 F Blood Pressure: 140/80 Pulse: 90 Respirations: 20 Pulse Ox (%): 95 - Physical Exam General: Alert, In no apparent distress, Oriented x3 HEENT: Atraumatic, PERRLA, Mucous membr. moist/pink, EOMI, Sclerae nonicteric Neck: Supple, 2+ carotid pulse no bruit, No LAD, Without JVD or thyroid abnormality Respiratory: Clear to auscultation bilaterally, Normal air movement Cardiovascular: Regular rate/rhythm, Normal S1 S2 Gastrointestinal: Hypoactive, Soft and benign, Non-distended, No tenderness Musculoskeletal: No clubbing, No swelling, No tenderness Integumentary: No rashes Neurological: Normal gait, Normal speech, Normal strength at 5/5 x4 extr, Normal tone, Sensation intact, Cranial nerves 3-12 intact, Normal affect Lymphatics: No axilla or inguinal lymphadenopathy - Studies Laboratory Data (last 24 hrs) 06/02/24 06/02/24 07:55 07:55 WBC 15.50 H Hgb 15.3 Hct 44.8 Plt Count 255 Sodium 138 Potassium 3.3 L BUN 21 H Creatinine 0.73 Glucose 152 H Total Bilirubin 0.5 AST 26 ALT 34 Alkaline Phosphatase 100 Lipase 25 Assessment & Plan - Problems (Diagnosis) (1) Intractable nausea and vomiting Current Visit: Yes Status: Acute (2) History of methadone use Current Visit: Yes Status: Acute (3) Cirrhosis Current Visit: Yes Status: Acute (4) Leukocytosis Current Visit: Yes Status: Acute - Plan Plan: 1. Aggressive IV hydration; will hold antibiotics for now and repeat labs in the morning 2. Antiemetics 3. Hepatitis profile 4. Will try to get some more information regarding his history of methadone use. Patient sleepy and did not really want to engage with conversation. Will come back later and talk to him some more. 5. Clear liquid diet and will advance as tolerated. 6. Admission for observation. Discharge Plan: Home Plan to discharge in: 24 Hours - Advance Directives Does patient have a Living Will: No Does patient have a Durable POA for Healthcare: No - Code Status/Comfort Care Code Status Assessed: Yes Code Status: Full Code Critical Care: No Time Spent Managing PTS Care (In Minutes): 45
[2024-06-02] MEDS ORDERED: FENTANYL CITR 100 MCG/2 ML IV PRN (10:03)
[2024-06-02] MEDS ORDERED: ONDANSETRON 4 MG/2 ML VIAL IV PRN (10:03)
[2024-06-02] MEDS ORDERED: ACETAMINOPHEN 500 MG TAB PO PRN (10:03)
[2024-06-02] MEDS ORDERED: PROMETHAZINE 25 MG TABLET PO PRN (10:05)
[2024-06-02] MEDS: NA CHLORIDE 0.9% 1,000 ML IV SCH (13:42)
--- NOTE | 2024-06-03 04:34 | P.DS ---
Admission Date: 06/02/24 Discharge Date: 06/04/24 Disposition: AMA-LEFT AGAINST MEDICAL ADVIC Discharge Condition: GOOD Reason for Admission: Intractable nausea and vomiting Brief History of Present Illness: 53-year-old gentleman came to the hospital with persistent nausea and vomiting. Patient states he has no history of constipation or no significant abdominal issues. He has had no nausea and vomiting. He does take methadone for chronic pain, as well as a history of substance abuse. In the ER patient was worked up and patient was found to have a questionable ileus. However, his abdomen is soft and nontender. He is having some nausea but no vomiting at this time. Emergency room physician did not feel comfortable with him going home without tolerating diet so he will be admitted for observation. Hospital Course: Left AMA Vital Signs/Physical Exam: Temp Pulse Resp BP Pulse Ox 98.3 F 69 18 126/77 96 06/02/24 20:00 06/02/24 20:00 06/02/24 20:00 06/02/24 20:00 06/02/24 20:00 General: Alert, In no apparent distress, Oriented x3 HEENT: Atraumatic, Normocephalic Neck: Supple Respiratory: Clear to auscultation bilaterally, Normal air movement Cardiovascular: Regular rate/rhythm, Normal S1 S2 Capillary refill: <2 Seconds Gastrointestinal: Soft and benign, W/out hepatosplenomegaly Musculoskeletal: No clubbing Integumentary: No rashes Neurological: Normal speech Lymphatics: No axilla or inguinal lymphadenopathy Laboratory Data at Discharge: WBC 15.50 thou/uL (4.3-10.9) H 06/02/24 07:55 Hgb 15.3 g/dL (13.6-17.9) 06/02/24 07:55 Hct 44.8 % (39.6-49.0) 06/02/24 07:55 Plt Count 255 thou/uL (152-406) 06/02/24 07:55 Sodium 138 mEq/L (136-145) 06/02/24 07:55 Potassium 3.3 mEq/L (3.5-5.1) L 06/02/24 07:55 BUN 21 mg/dL (7-18) H 06/02/24 07:55 Creatinine 0.73 mg/dL (0.70-1.30) 06/02/24 07:55 Glucose 152 mg/dL (74-106) H 06/02/24 07:55 Total Bilirubin 0.5 mg/dL (0.2-1.0) 06/02/24 07:55 AST 26 U/L (15-37) 06/02/24 07:55 ALT 34 U/L (16-61) 06/02/24 07:55 Alkaline Phosphatase 100 U/L (45-117) 06/02/24 07:55 Lipase 25 U/L (13-75) 06/02/24 07:55 Home Medications: Methadone HCl 40 mg PO BID 06/02/24 Physician Discharge Instructions: OK TO DC IV AND DC HOME FOLLOW-UP WITH PRIMARY CARE PROVIDER IN 1-2 WEEKS FOLLOW-UP WITH CARDIOLOGY IN 1-2 WEEKS RETURN TO THE ER IF CALL DR. MARTINEZ AT [phone] IF ANY QUESTIONS REGARDING HOSPITAL STAY. PLEASE CALL THE FLOOR AT [phone] IF ANY MEDICATION OR NURSING QUESTIONS. Followup: Loyd Kamara DO [Primary Care Provider] - Time spent managing pt's care (in minutes): 42
[2024-06-04 15:59] VITALS: BP 151/74; TEMP 98
[2024-06-04 16:01] VITALS: O2SAT 96; BMI 25.5
--- NOTE | 2024-06-06 12:12 | EKG ---
Test Date: 2024-06-02 Test Time: 08:12:27 [employer]: [place] MEASUREMENT RESULTS: Intervals: Rate: 81 AK: 148 QRSD: 92 QT: 404 QTc: 469 Wheeler: P: 74 AK: 148 QRS: 52 T: 46 INTERPRETIVE STATEMENTS: Normal sinus rhythm Normal ECG Compared to ECG 10/22/2022 12:17:00 No significant changes Electronically Signed On 06-06-24 12:08:54 PRICING COORDINATOR by Kenny Kolb
== END 2024-06-03 04:30 | disposition left against medical advice (07) ==
LOC: ER 07:48 → ERHOLD 10:03 → 2ND 10:36
PROVIDERS: ADMIT Hospitalist; ATTEND Hospitalist
DX: K56.7 Ileus, unspecified (principal); R11.2 Nausea with vomiting, unspecified; K74.60 Unspecified cirrhosis of liver; D72.829 Elevated white blood cell count, unspecified; G89.29 Other chronic pain
CPT/HCPCS: 96361; 85025; 36415; 84484; 83690; 80053; 74177; 76705; 96375; 96374; 99285; Q9967; J2550; J2405; J7030 ×3; G0378 ×3; 93005